=== PATIENT | male | born 1965 | race Caucasian/White ===

== ENCOUNTER 2017-09-13 19:28 | Inpatient (IN) | payer OTHER ==
[2017-09-13] VITALS (69 sets, daily range): O2SAT 78–100
[~2017-09-13] VITALS: Ht 180.3 cm; Wt 88.6 kg
[~2017-09-13 19:28] MED LIST: CELEXA10 MG PO; PREDNISONE20 MG PO; PRINIVIL2.5 MG PO; TOPROL XL 25MG25 MG PO
[2017-09-13 20:19] LABS: ARTERIAL BLD GAS O2 SATURATION 88.1 % (92-100); ARTERIAL BLD GAS TCO2 CT 20.7; ARTERIAL BLOOD GAS BASE EXCESS -4.6 (-2-2); ARTERIAL BLOOD GAS HCO3 19.7 meq/L (22-26); ARTERIAL BLOOD GAS PCO2 32.8 mmHg (35-45); ARTERIAL BLOOD GAS PO2 59.4 mmHg (80-100)
[2017-09-13 20:24] LABS: BASO % 0.2 % (0.0-2.0); GRAN # 3.5 (1.4-6.5); GRAN % 73.9 % (42.2-75.2); LYMPH # 0.7 (1.2-3.4); LYMPH % 15.2 % (20.0-51.0); MEAN CELL VOLUME 88 fl (80.0-100.0); MEAN CORPUSCULAR HGB CONC 30 g/dl (33.0-37.0); MEAN PLATELET VOLUME 10.2 fl (7.4-10.4); MONO # 0.5 (0.1-0.6); MONO % 10.3 % (1.7-9.3); PLATELET COUNT 136 K/mm3 (130-400); RED BLOOD COUNT 2.84 M/mm3 (4.20-5.60); REDCELL DISTRIBUTION WIDTH-CV 20.7 % (11.5-14.5)
[2017-09-13 20:27] LABS: HEMATOCRIT 25.1 % (42.0-52.0); HEMOGLOBIN 7.4 g/dl (13.5-18.0); MEAN CORPUSCULAR HEMOGLOBIN 26 pg (27.0-31.0)
[2017-09-13 20:28] LABS: INR 1.7 (0.8-3.0); PROTHROMBIN TIME 19.4 SECONDS (9.7-12.8)
[2017-09-13 20:31] LABS: PARTIAL THROMBOPLASTIN TIME 30.7 SECONDS (26.0-37.0)
[2017-09-13 20:35] LABS: ALANINE AMINOTRANSFERASE 38 U/L (21-72); ALBUMIN 2.9 gm/dL (3.5-5.0); ALCOHOL(ethanol),MEDICAL 24 mg/dL; ALKALINE PHOSPHATASE 244 U/L (50-136); ANION GAP 14 mmol/L (7-16); AST,SGOT 84 U/L (15-37); BILIRUBIN,TOTAL 2.1 mg/dL (0.0-1.0); BLOOD UREA NITROGEN 22 mg/dL (9-20); C-REACTIVE PROTEIN 4.9 mg/dL (0.0-0.9); CALCIUM 8.2 mg/dL (8.4-10.2); CARBON DIOXIDE 20 mmol/L (22-30); CHLORIDE 100 mmol/L (98-107); CREATINE KINASE 90 U/L (55-170); CREATININE, serum 0.74 mg/dL (0.66-1.25); GLUCOSE 173 mg/dL (74-106); LIPASE 368 U/L (23-300); MAGNESIUM 1.9 mg/dL (1.6-2.3); POTASSIUM 3.4 mmol/L (3.4-5.0); SODIUM 134 mmol/L (137-145); TOTAL PROTEIN 6.8 gm/dL (6.4-8.2)
[2017-09-13 20:45] LABS: TROPONIN-I < 0.012 ng/mL (0.000-0.034)
[2017-09-13 23:18] LABS: ARTERIAL BLD GAS O2 SATURATION 84.8 % (92-100); ARTERIAL BLD GAS TCO2 CT 19.7; ARTERIAL BLOOD GAS BASE EXCESS -10.6 (-2-2); ARTERIAL BLOOD GAS PCO2 55.8 mmHg (35-45); ARTERIAL BLOOD GAS PO2 70.9 mmHg (80-100)
[2017-09-13 23:21] LABS: ARTERIAL BLOOD GAS pH 7.13 (7.35-7.45)
[2017-09-13 23:34] LABS: HEMATOCRIT 23.2 % (42.0-52.0)
[2017-09-13 23:35] LABS: HEMOGLOBIN 6.6 g/dl (13.5-18.0)
[2017-09-13 23:53] LABS: PERITONEAL FLUID RBC 2000 /mm3 (0-0)
[2017-09-14] VITALS (849 sets, daily range): BP systolic 67–129; BP diastolic 46–94; PULSE 97–115; TEMP 97–99.4; O2SAT 59–100
[2017-09-14 00:06] LABS: PERITONEAL -POLYMORPHONUCLEAR 95 % (0-25)
[2017-09-14 00:51] LABS: ACETAMINOPHEN < 10 ug/mL (10-30); SALICYLATE < 1.0 mg/dL
[2017-09-14 01:08] LABS: ARTERIAL BLD GAS O2 SATURATION 95.4 % (92-100); ARTERIAL BLD GAS TCO2 CT 19.1; ARTERIAL BLOOD GAS BASE EXCESS -7.7 (-2-2); ARTERIAL BLOOD GAS PCO2 37.4 mmHg (35-45); ARTERIAL BLOOD GAS PO2 93.8 mmHg (80-100)
[2017-09-14 04:52] LABS: ARTERIAL BLD GAS O2 SATURATION 98.6 % (92-100); ARTERIAL BLD GAS TCO2 CT 19.2; ARTERIAL BLOOD GAS BASE EXCESS -6.5 (-2-2); ARTERIAL BLOOD GAS HCO3 18.2 meq/L (22-26); ARTERIAL BLOOD GAS PCO2 33.3 mmHg (35-45); ARTERIAL BLOOD GAS pH 7.36 (7.35-7.45)
[2017-09-14 04:53] LABS: ARTERIAL BLOOD GAS PO2 143.6 mmHg (80-100)
[2017-09-14 05:09] LABS: AMORPHOUS CRYSTAL Present /uL; PH 5 (5-8); URINE APPEARANCE Cloudy; URINE BACTERIA Rare /hpf; URINE BILIRUBIN Negative (NEGATIVE); URINE BLOOD 2+ (NEGATIVE); URINE COLOR Yellow; URINE GLUCOSE Negative (NEGATIVE); URINE KETONE Negative (NEGATIVE); URINE LEUKOCYTE ESTERASE Negative (NEGATIVE); URINE NITRATE Negative (NEGATIVE); URINE PROTEIN(semi-quant) 1+ (NEGATIVE); URINE UROBILINOGEN Negative (NEGATIVE)
[2017-09-14 05:10] LABS: TRICYCLIC ANTIDEPRESS URINE NEGATIVE
[2017-09-14 05:12] LABS: COLLECTION METHOD CLEAN CATCH
[2017-09-14 05:43] LABS: MEAN CELL VOLUME 89 fl (80.0-100.0); MEAN CORPUSCULAR HGB CONC 30 g/dl (33.0-37.0); MEAN PLATELET VOLUME 11.2 fl (7.4-10.4); PLATELET COUNT 95 K/mm3 (130-400); RED BLOOD COUNT 3.28 M/mm3 (4.20-5.60); REDCELL DISTRIBUTION WIDTH-CV 18.6 % (11.5-14.5)
[2017-09-14 05:54] LABS: INR 2.4 (0.8-3.0); PROTHROMBIN TIME 28.2 SECONDS (9.7-12.8)
[2017-09-14 06:00] LABS: HEMATOCRIT 29.3 % (42.0-52.0); HEMOGLOBIN 8.8 g/dl (13.5-18.0); MEAN CORPUSCULAR HEMOGLOBIN 27 pg (27.0-31.0)
[2017-09-14 06:02] LABS: ALBUMIN 2.3 gm/dL (3.5-5.0); BILIRUBIN,TOTAL 4.1 mg/dL (0.0-1.0); CALCIUM 7.2 mg/dL (8.4-10.2); CREATININE, serum 1.16 mg/dL (0.66-1.25); POTASSIUM 3.7 mmol/L (3.4-5.0); TOTAL PROTEIN 5.6 gm/dL (6.4-8.2)
[2017-09-14 07:56] LABS: BAND 35 % (0-10); LYMPHOCYTE 8 % (20.0-51.0); NEUTROPHILS 48 % (42.0-75.2); NUCLEATED RED BLOOD CELL 1 (0-6); PLATELET ESTIMATE DECREASED (NORMAL)
[2017-09-14 07:57] LABS: ANISOCYTOSIS 1+; HYPOCHROMIA 3+
[2017-09-14 12:30] LABS: HEMATOCRIT 28.9 % (42.0-52.0); HEMOGLOBIN 8.8 g/dl (13.5-18.0)
[2017-09-14 15:57] LABS: INR 2.1 (0.8-3.0); PROTHROMBIN TIME 24.7 SECONDS (9.7-12.8)
[2017-09-14 17:02] LABS: ARTERIAL BLD GAS O2 SATURATION 92.5 % (92-100); ARTERIAL BLD GAS TCO2 CT 19.4; ARTERIAL BLOOD GAS BASE EXCESS -6.5 (-2-2); ARTERIAL BLOOD GAS HCO3 18.3 meq/L (22-26); ARTERIAL BLOOD GAS PCO2 33.9 mmHg (35-45); ARTERIAL BLOOD GAS PO2 69.9 mmHg (80-100); ARTERIAL BLOOD GAS pH 7.35 (7.35-7.45)
[2017-09-14 20:17] LABS: HEMATOCRIT 28.7 % (42.0-52.0); HEMOGLOBIN 8.5 g/dl (13.5-18.0)
[2017-09-14 21:56] LABS: INR 2.2 (0.8-3.0); PROTHROMBIN TIME 25.4 SECONDS (9.7-12.8)
[2017-09-14 21:59] LABS: PARTIAL THROMBOPLASTIN TIME 32.3 SECONDS (26.0-37.0)
[2017-09-15] VITALS (1074 sets, daily range): BP systolic 93–143; BP diastolic 7–73; PULSE 81–99; TEMP 96.7–99.3; O2SAT 84–99
[2017-09-15 04:17] LABS: MEAN CELL VOLUME 91 fl (80.0-100.0); MEAN CORPUSCULAR HGB CONC 30 g/dl (33.0-37.0); MEAN PLATELET VOLUME 11.4 fl (7.4-10.4); PLATELET COUNT 146 K/mm3 (130-400); RED BLOOD COUNT 3.09 M/mm3 (4.20-5.60); REDCELL DISTRIBUTION WIDTH-CV 19.8 % (11.5-14.5)
[2017-09-15 04:23] LABS: ARTERIAL BLD GAS O2 SATURATION 73.5 % (92-100); ARTERIAL BLD GAS TCO2 CT 21.7; ARTERIAL BLOOD GAS BASE EXCESS -5.4 (-2-2); ARTERIAL BLOOD GAS HCO3 20.5 meq/L (22-26); ARTERIAL BLOOD GAS PCO2 41.2 mmHg (35-45); ARTERIAL BLOOD GAS pH 7.31 (7.35-7.45)
[2017-09-15 04:26] LABS: ALANINE AMINOTRANSFERASE 431 U/L (21-72); ALBUMIN 2.7 gm/dL (3.5-5.0); ALKALINE PHOSPHATASE 132 U/L (50-136); ANION GAP 11 mmol/L (7-16); AST,SGOT > 750 U/L (15-37); BILIRUBIN,TOTAL 6.2 mg/dL (0.0-1.0); BLOOD UREA NITROGEN 37 mg/dL (9-20); CALCIUM 7.7 mg/dL (8.4-10.2); CARBON DIOXIDE 20 mmol/L (22-30); CHLORIDE 102 mmol/L (98-107); CREATININE, serum 1.94 mg/dL (0.66-1.25); GLUCOSE 197 mg/dL (74-106); MAGNESIUM 2.1 mg/dL (1.6-2.3); PHOSPHOROUS 4.9 mg/dL (2.5-4.5); POTASSIUM 4.6 mmol/L (3.4-5.0); SODIUM 133 mmol/L (137-145); TOTAL PROTEIN 6.2 gm/dL (6.4-8.2)
[2017-09-15 04:27] LABS: ARTERIAL BLOOD GAS PO2 42.3 mmHg (80-100)
[2017-09-15 04:35] LABS: HEMOGLOBIN 8.5 g/dl (13.5-18.0); MEAN CORPUSCULAR HEMOGLOBIN 28 pg (27.0-31.0)
[2017-09-15 04:50] LABS: INR 2.4 (0.8-3.0); PROTHROMBIN TIME 28.3 SECONDS (9.7-12.8)
[2017-09-15 05:00] LABS: BAND 13 % (0-10); LYMPHOCYTE 18 % (20.0-51.0); METAMYELOCYTE 1 % (0-0); NEUTROPHILS 63 % (42.0-75.2); NUCLEATED RED BLOOD CELL 3 (0-6); POLYCHROMASIA 1+; ROULEAUX 2+
[2017-09-15 05:01] LABS: ANISOCYTOSIS 2+; HYPOCHROMIA 1+; POIKILOCYTOSIS 1+; SCHISTOCYTES 1+
[2017-09-15 20:25] LABS: HEMATOCRIT 22.7 % (42.0-52.0)
[2017-09-15 20:27] LABS: HEMOGLOBIN 6.9 g/dl (13.5-18.0)
[2017-09-16] VITALS (870 sets, daily range): BP systolic 92–153; BP diastolic 44–74; PULSE 70–120; TEMP 96.9–98.5; O2SAT 85–99
[2017-09-16 05:35] LABS: ARTERIAL BLD GAS TCO2 CT 22.5; ARTERIAL BLOOD GAS BASE EXCESS -1.8 (-2-2); ARTERIAL BLOOD GAS HCO3 21.6 meq/L (22-26); ARTERIAL BLOOD GAS PCO2 30.4 mmHg (35-45); ARTERIAL BLOOD GAS pH 7.47 (7.35-7.45)
[2017-09-16 05:56] LABS: MEAN CELL VOLUME 89 fl (80.0-100.0); MEAN CORPUSCULAR HGB CONC 31 g/dl (33.0-37.0); MEAN PLATELET VOLUME 10.8 fl (7.4-10.4); PLATELET COUNT 62 K/mm3 (130-400); RED BLOOD COUNT 2.56 M/mm3 (4.20-5.60); REDCELL DISTRIBUTION WIDTH-CV 20.3 % (11.5-14.5)
[2017-09-16 06:00] LABS: INR 2.2 (0.8-3.0); PROTHROMBIN TIME 25.3 SECONDS (9.7-12.8)
[2017-09-16 06:06] LABS: HEMATOCRIT 22.8 % (42.0-52.0); MEAN CORPUSCULAR HEMOGLOBIN 27 pg (27.0-31.0)
[2017-09-16 06:10] LABS: ALBUMIN 2.7 gm/dL (3.5-5.0); BILIRUBIN,TOTAL 4.7 mg/dL (0.0-1.0); CALCIUM 8.2 mg/dL (8.4-10.2); CREATININE, serum 1.6 mg/dL (0.66-1.25); POTASSIUM 3.8 mmol/L (3.4-5.0); TOTAL PROTEIN 5.6 gm/dL (6.4-8.2)
[2017-09-16 07:58] LABS: BAND 52 % (0-10); LYMPHOCYTE 10 % (20.0-51.0); NEUTROPHILS 36 % (42.0-75.2)
[2017-09-16 07:59] LABS: ANISOCYTOSIS 4+; OVALOCYTES 1+; PLATELET ESTIMATE DECREASED (NORMAL); TARGET CELLS 1+
[2017-09-16 09:34] LABS: MAGNESIUM 2.3 mg/dL (1.6-2.3); PHOSPHOROUS 2.9 mg/dL (2.5-4.5)
[2017-09-16 11:56] LABS: ARTERIAL BLD GAS O2 SATURATION 93.5 % (92-100); ARTERIAL BLD GAS TCO2 CT 25.4; ARTERIAL BLOOD GAS BASE EXCESS -2.1 (-2-2); ARTERIAL BLOOD GAS HCO3 23.9 meq/L (22-26); ARTERIAL BLOOD GAS PCO2 47.1 mmHg (35-45); ARTERIAL BLOOD GAS pH 7.32 (7.35-7.45)
[2017-09-16 12:55] LABS: TRIGLYCERIDE 67 mg/dL
[2017-09-16 13:00] LABS: CHOLESTEROL < 50 mg/dL (120-200)
[2017-09-17] VITALS (1004 sets, daily range): BP systolic 86–112; BP diastolic 48–61; PULSE 67–101; TEMP 96.9–98.5; O2SAT 91–99
[2017-09-17 05:47] LABS: BASO # 0.1 (0.0-0.2); BASO % 0.4 % (0.0-2.0); GRAN # 10.9 (1.4-6.5); GRAN % 79.9 % (42.2-75.2); LYMPH # 0.5 (1.2-3.4); LYMPH % 3.7 % (20.0-51.0); MEAN CELL VOLUME 91 fl (80.0-100.0); MEAN CORPUSCULAR HGB CONC 30 g/dl (33.0-37.0); MONO # 2.1 (0.1-0.6); MONO % 15.6 % (1.7-9.3); PLATELET COUNT 80 K/mm3 (130-400); RED BLOOD COUNT 2.96 M/mm3 (4.20-5.60); REDCELL DISTRIBUTION WIDTH-CV 19.5 % (11.5-14.5)
[2017-09-17 05:48] LABS: HEMATOCRIT 26.9 % (42.0-52.0); HEMOGLOBIN 8.1 g/dl (13.5-18.0); MEAN CORPUSCULAR HEMOGLOBIN 27 pg (27.0-31.0)
[2017-09-17 05:50] LABS: INR 1.6 (0.8-3.0); PROTHROMBIN TIME 18.3 SECONDS (9.7-12.8)
[2017-09-17 05:59] LABS: CALCIUM 8.4 mg/dL (8.4-10.2); CREATININE, serum 1.39 mg/dL (0.66-1.25); MAGNESIUM 2.5 mg/dL (1.6-2.3); PHOSPHOROUS 3.1 mg/dL (2.5-4.5); POTASSIUM 5.2 mmol/L (3.4-5.0)
[2017-09-17 10:41] LABS: ARTERIAL BLOOD GAS PCO2 47.3 mmHg (35-45); ARTERIAL BLOOD GAS PO2 80.6 mmHg (80-100); ARTERIAL BLOOD GAS pH 7.34 (7.35-7.45)
[2017-09-17 10:42] LABS: ARTERIAL BLD GAS O2 SATURATION 94.7 % (92-100); ARTERIAL BLD GAS TCO2 CT 26.5; ARTERIAL BLOOD GAS BASE EXCESS -0.8 (-2-2)
[2017-09-17 13:46] LABS: MAGNESIUM 2.6 mg/dL (1.6-2.3); PHOSPHOROUS 2.7 mg/dL (2.5-4.5); POTASSIUM 5.3 mmol/L (3.4-5.0)
[2017-09-17 17:22] LABS: MAGNESIUM 2.6 mg/dL (1.6-2.3); PHOSPHOROUS 2.5 mg/dL (2.5-4.5); POTASSIUM 4.9 mmol/L (3.4-5.0)
[2017-09-17 20:58] LABS: MAGNESIUM 2.6 mg/dL (1.6-2.3); PHOSPHOROUS 1.9 mg/dL (2.5-4.5); POTASSIUM 4.4 mmol/L (3.4-5.0)
[2017-09-18] VITALS (1167 sets, daily range): BP systolic 90–123; BP diastolic 41–66; PULSE 62–126; TEMP 96.8–98.2; O2SAT 91–100
[2017-09-18 06:05] LABS: CALCIUM 9.1 mg/dL (8.4-10.2); MAGNESIUM 2.6 mg/dL (1.6-2.3); PHOSPHOROUS 1.4 mg/dL (2.5-4.5); POTASSIUM 4.7 mmol/L (3.4-5.0)
[2017-09-18 06:40] LABS: MEAN CELL VOLUME 90 fl (80.0-100.0); MEAN CORPUSCULAR HGB CONC 31 g/dl (33.0-37.0); RED BLOOD COUNT 3.04 M/mm3 (4.20-5.60); REDCELL DISTRIBUTION WIDTH-CV 19.5 % (11.5-14.5)
[2017-09-18 06:48] LABS: HEMATOCRIT 27.3 % (42.0-52.0); HEMOGLOBIN 8.4 g/dl (13.5-18.0); MEAN CORPUSCULAR HEMOGLOBIN 28 pg (27.0-31.0)
[2017-09-18 06:49] LABS: PLATELET COUNT 47 K/mm3 (130-400)
[2017-09-18 07:14] LABS: NEUTROPHILS 61 % (42.0-75.2)
[2017-09-18 07:15] LABS: ANISOCYTOSIS 1+; BAND 24 % (0-10); HYPOCHROMIA 3+; LYMPHOCYTE 7 % (20.0-51.0); PLATELET ESTIMATE DECREASED (NORMAL)
[2017-09-18 18:16] LABS: MAGNESIUM 2.1 mg/dL (1.6-2.3); PHOSPHOROUS 2.2 mg/dL (2.5-4.5); POTASSIUM 3.7 mmol/L (3.4-5.0)
[2017-09-19] VITALS (1080 sets, daily range): BP systolic 90–123; BP diastolic 43–67; PULSE 58–136; TEMP 96.8–98.9; O2SAT 90–100
[2017-09-19 05:15] LABS: ARTERIAL BLD GAS O2 SATURATION 95.6 % (92-100); ARTERIAL BLD GAS TCO2 CT 31.4; ARTERIAL BLOOD GAS BASE EXCESS 6.3 (-2-2); ARTERIAL BLOOD GAS HCO3 30.2 meq/L (22-26); ARTERIAL BLOOD GAS PCO2 40.4 mmHg (35-45); ARTERIAL BLOOD GAS PO2 82.8 mmHg (80-100); ARTERIAL BLOOD GAS pH 7.49 (7.35-7.45)
[2017-09-19 06:04] LABS: BASO % 0.4 % (0.0-2.0); GRAN # 8.2 (1.4-6.5); GRAN % 80.9 % (42.2-75.2); LYMPH # 0.4 (1.2-3.4); LYMPH % 4.3 % (20.0-51.0); MEAN CELL VOLUME 88 fl (80.0-100.0); MEAN CORPUSCULAR HGB CONC 31 g/dl (33.0-37.0); MEAN PLATELET VOLUME 12.3 fl (7.4-10.4); MONO # 1.4 (0.1-0.6); MONO % 13.6 % (1.7-9.3); RED BLOOD COUNT 3.14 M/mm3 (4.20-5.60); REDCELL DISTRIBUTION WIDTH-CV 20.5 % (11.5-14.5)
[2017-09-19 06:09] LABS: HEMATOCRIT 27.5 % (42.0-52.0); HEMOGLOBIN 8.5 g/dl (13.5-18.0); MEAN CORPUSCULAR HEMOGLOBIN 27 pg (27.0-31.0)
[2017-09-19 06:10] LABS: PLATELET COUNT 49 K/mm3 (130-400)
[2017-09-19 06:18] LABS: ALBUMIN 2.2 gm/dL (3.5-5.0); BILIRUBIN,TOTAL 4.1 mg/dL (0.0-1.0); CALCIUM 8.9 mg/dL (8.4-10.2); CREATININE, serum 0.97 mg/dL (0.66-1.25); MAGNESIUM 2.2 mg/dL (1.6-2.3); PHOSPHOROUS 2.5 mg/dL (2.5-4.5); POTASSIUM 3.8 mmol/L (3.4-5.0)
[2017-09-19 15:55] LABS: ARTERIAL BLD GAS O2 SATURATION 95.7 % (92-100); ARTERIAL BLD GAS TCO2 CT 36.2; ARTERIAL BLOOD GAS BASE EXCESS 9.5 (-2-2); ARTERIAL BLOOD GAS HCO3 34.7 meq/L (22-26); ARTERIAL BLOOD GAS PCO2 50.2 mmHg (35-45); ARTERIAL BLOOD GAS PO2 86.7 mmHg (80-100); ARTERIAL BLOOD GAS pH 7.46 (7.35-7.45)
[2017-09-19 16:23] LABS: CALCIUM 8.8 mg/dL (8.4-10.2); CREATININE, serum 0.96 mg/dL (0.66-1.25); POTASSIUM 3.9 mmol/L (3.4-5.0)
[2017-09-19 22:22] LABS: CREATININE, serum 0.99 mg/dL (0.66-1.25); POTASSIUM 3.5 mmol/L (3.4-5.0)
[2017-09-20] VITALS (1069 sets, daily range): BP systolic 92–127; BP diastolic 54–82; PULSE 62–108; TEMP 97.3–99.8; O2SAT 78–100
[2017-09-20 04:43] LABS: ARTERIAL BLOOD GAS BASE EXCESS 1.7 (-2-2); ARTERIAL BLOOD GAS PCO2 33.7 mmHg (35-45); ARTERIAL BLOOD GAS PO2 87.1 mmHg (80-100); ARTERIAL BLOOD GAS pH 7.49 (7.35-7.45)
[2017-09-20 06:14] LABS: BASO % 0.1 % (0.0-2.0); GRAN # 7.5 (1.4-6.5); GRAN % 84.6 % (42.2-75.2); LYMPH # 0.2 (1.2-3.4); LYMPH % 2.7 % (20.0-51.0); MEAN CELL VOLUME 89 fl (80.0-100.0); MEAN CORPUSCULAR HGB CONC 30 g/dl (33.0-37.0); MEAN PLATELET VOLUME 11.6 fl (7.4-10.4); MONO % 11.7 % (1.7-9.3); RED BLOOD COUNT 3.14 M/mm3 (4.20-5.60); REDCELL DISTRIBUTION WIDTH-CV 21.2 % (11.5-14.5)
[2017-09-20 06:19] LABS: HEMATOCRIT 27.8 % (42.0-52.0); HEMOGLOBIN 8.4 g/dl (13.5-18.0); MEAN CORPUSCULAR HEMOGLOBIN 27 pg (27.0-31.0)
[2017-09-20 06:20] LABS: PLATELET COUNT 49 K/mm3 (130-400)
[2017-09-20 06:21] LABS: INR 1.6 (0.8-3.0); PROTHROMBIN TIME 18.2 SECONDS (9.7-12.8)
[2017-09-20 06:24] LABS: PARTIAL THROMBOPLASTIN TIME 32.3 SECONDS (26.0-37.0)
[2017-09-20 06:31] LABS: ALBUMIN 2.3 gm/dL (3.5-5.0); BILIRUBIN,TOTAL 4.4 mg/dL (0.0-1.0); CREATININE, serum 0.94 mg/dL (0.66-1.25); PHOSPHOROUS 3.4 mg/dL (2.5-4.5); TOTAL PROTEIN 5.1 gm/dL (6.4-8.2)
[2017-09-20 13:52] LABS: ARTERIAL BLD GAS O2 SATURATION 93.9 % (92-100); ARTERIAL BLD GAS TCO2 CT 30.4; ARTERIAL BLOOD GAS BASE EXCESS 5.8 (-2-2); ARTERIAL BLOOD GAS HCO3 29.3 meq/L (22-26); ARTERIAL BLOOD GAS PCO2 38.3 mmHg (35-45); ARTERIAL BLOOD GAS PO2 68.7 mmHg (80-100)
[2017-09-21] VITALS (1012 sets, daily range): BP systolic 105–141; BP diastolic 62–84; PULSE 73–124; TEMP 97–99.4; O2SAT 84–99
[2017-09-21 04:42] LABS: ARTERIAL BLD GAS O2 SATURATION 94.3 % (92-100); ARTERIAL BLOOD GAS BASE EXCESS 6.9 (-2-2); ARTERIAL BLOOD GAS HCO3 31.6 meq/L (22-26); ARTERIAL BLOOD GAS PCO2 46.3 mmHg (35-45); ARTERIAL BLOOD GAS PO2 74.5 mmHg (80-100); ARTERIAL BLOOD GAS pH 7.45 (7.35-7.45)
[2017-09-21 05:45] LABS: BASO % 0.1 % (0.0-2.0); GRAN % 89.8 % (42.2-75.2); LYMPH # 0.3 (1.2-3.4); LYMPH % 1.7 % (20.0-51.0); MEAN CELL VOLUME 88 fl (80.0-100.0); MEAN CORPUSCULAR HGB CONC 30 g/dl (33.0-37.0); MEAN PLATELET VOLUME 11.7 fl (7.4-10.4); MONO # 1.2 (0.1-0.6); MONO % 7.8 % (1.7-9.3); PLATELET COUNT 64 K/mm3 (130-400); RED BLOOD COUNT 3.25 M/mm3 (4.20-5.60); REDCELL DISTRIBUTION WIDTH-CV 21.7 % (11.5-14.5)
[2017-09-21 05:46] LABS: HEMATOCRIT 28.7 % (42.0-52.0); HEMOGLOBIN 8.7 g/dl (13.5-18.0); MEAN CORPUSCULAR HEMOGLOBIN 27 pg (27.0-31.0)
[2017-09-21 05:55] LABS: INR 1.6 (0.8-3.0); PROTHROMBIN TIME 18.2 SECONDS (9.7-12.8)
[2017-09-21 06:03] LABS: PARTIAL THROMBOPLASTIN TIME 30.7 SECONDS (26.0-37.0)
[2017-09-21 06:06] LABS: ALBUMIN 2.6 gm/dL (3.5-5.0); BILIRUBIN,TOTAL 5.9 mg/dL (0.0-1.0); CALCIUM 8.8 mg/dL (8.4-10.2); CREATININE, serum 0.96 mg/dL (0.66-1.25); POTASSIUM 4.2 mmol/L (3.4-5.0); TOTAL PROTEIN 5.7 gm/dL (6.4-8.2)
[2017-09-21 10:37] LABS: ARTERIAL BLD GAS O2 SATURATION 95.4 % (92-100); ARTERIAL BLD GAS TCO2 CT 29.2; ARTERIAL BLOOD GAS BASE EXCESS 3.6 (-2-2); ARTERIAL BLOOD GAS HCO3 27.9 meq/L (22-26); ARTERIAL BLOOD GAS PCO2 41.5 mmHg (35-45); ARTERIAL BLOOD GAS pH 7.45 (7.35-7.45)
[2017-09-21 19:18] LABS: ARTERIAL BLD GAS O2 SATURATION 91.9 % (92-100); ARTERIAL BLD GAS TCO2 CT 29.2; ARTERIAL BLOOD GAS BASE EXCESS 5.3 (-2-2); ARTERIAL BLOOD GAS HCO3 28.2 meq/L (22-26); ARTERIAL BLOOD GAS PCO2 34.8 mmHg (35-45); ARTERIAL BLOOD GAS PO2 59.3 mmHg (80-100); ARTERIAL BLOOD GAS pH 7.53 (7.35-7.45)
[2017-09-22] VITALS (915 sets, daily range): BP systolic 95–171; BP diastolic 57–99; PULSE 68–96; TEMP 97.6–99.2; O2SAT 90–96
[2017-09-22 05:33] LABS: ARTERIAL BLD GAS TCO2 CT 33.4; ARTERIAL BLOOD GAS BASE EXCESS 6.8 (-2-2); ARTERIAL BLOOD GAS HCO3 31.9 meq/L (22-26); ARTERIAL BLOOD GAS PO2 91.4 mmHg (80-100); ARTERIAL BLOOD GAS pH 7.43 (7.35-7.45)
[2017-09-22 06:01] LABS: MEAN CELL VOLUME 86 fl (80.0-100.0); MEAN CORPUSCULAR HGB CONC 31 g/dl (33.0-37.0); PLATELET COUNT 55 K/mm3 (130-400); RED BLOOD COUNT 3.12 M/mm3 (4.20-5.60); REDCELL DISTRIBUTION WIDTH-CV 22.1 % (11.5-14.5)
[2017-09-22 06:11] LABS: HEMATOCRIT 26.8 % (42.0-52.0); HEMOGLOBIN 8.3 g/dl (13.5-18.0); MEAN CORPUSCULAR HEMOGLOBIN 27 pg (27.0-31.0)
[2017-09-22 06:12] LABS: ALANINE AMINOTRANSFERASE 81 U/L (21-72); ALBUMIN 2.8 gm/dL (3.5-5.0); ALKALINE PHOSPHATASE 69 U/L (50-136); ANION GAP 7 mmol/L (7-16); AST,SGOT 91 U/L (15-37); BILIRUBIN,TOTAL 6.7 mg/dL (0.0-1.0); BLOOD UREA NITROGEN 58 mg/dL (9-20); CARBON DIOXIDE 33 mmol/L (22-30); CHLORIDE 107 mmol/L (98-107); CREATININE, serum 0.81 mg/dL (0.66-1.25); GLUCOSE 134 mg/dL (74-106); INR 1.6 (0.8-3.0); MAGNESIUM 2.1 mg/dL (1.6-2.3); PHOSPHOROUS 3.1 mg/dL (2.5-4.5); POTASSIUM 3.5 mmol/L (3.4-5.0); PROTHROMBIN TIME 18.6 SECONDS (9.7-12.8); SODIUM 147 mmol/L (137-145); TOTAL PROTEIN 5.1 gm/dL (6.4-8.2); TRIGLYCERIDE 70 mg/dL
[2017-09-22 06:15] LABS: PARTIAL THROMBOPLASTIN TIME 34.3 SECONDS (26.0-37.0)
[2017-09-22 06:19] LABS: PRE ALBUMIN 8.9 mg/dL (17.6-36.0)
[2017-09-22 06:28] LABS: CHOLESTEROL < 50 mg/dL (120-200)
[2017-09-22 06:37] LABS: BAND 2 % (0-10); HYPOCHROMIA 2+; LYMPHOCYTE 3 % (20.0-51.0); NEUTROPHILS 93 % (42.0-75.2); PLATELET ESTIMATE DECREASED (NORMAL)
[2017-09-22 11:10] LABS: ARTERIAL BLD GAS O2 SATURATION 93.4 % (92-100); ARTERIAL BLD GAS TCO2 CT 29.9; ARTERIAL BLOOD GAS BASE EXCESS 4.6 (-2-2); ARTERIAL BLOOD GAS HCO3 28.7 meq/L (22-26); ARTERIAL BLOOD GAS PCO2 40.3 mmHg (35-45); ARTERIAL BLOOD GAS PO2 68.6 mmHg (80-100); ARTERIAL BLOOD GAS pH 7.47 (7.35-7.45)
[2017-09-22 22:07] LABS: 12 HR URINE TOTAL VOLUME 1.5 L
[2017-09-23] VITALS (1156 sets, daily range): BP systolic 86–106; BP diastolic 47–56; PULSE 54–67; TEMP 97.6–98.8; O2SAT 88–100
[2017-09-23 05:11] LABS: ARTERIAL BLOOD GAS BASE EXCESS 7.5 (-2-2); ARTERIAL BLOOD GAS HCO3 34.9 meq/L (22-26); ARTERIAL BLOOD GAS PCO2 68.4 mmHg (35-45); ARTERIAL BLOOD GAS PO2 92.7 mmHg (80-100); ARTERIAL BLOOD GAS pH 7.33 (7.35-7.45)
[2017-09-23 06:15] LABS: MEAN CELL VOLUME 90 fl (80.0-100.0); MEAN CORPUSCULAR HGB CONC 30 g/dl (33.0-37.0); PLATELET COUNT 75 K/mm3 (130-400); RED BLOOD COUNT 2.93 M/mm3 (4.20-5.60); REDCELL DISTRIBUTION WIDTH-CV 22.5 % (11.5-14.5)
[2017-09-23 06:22] LABS: HEMATOCRIT 26.5 % (42.0-52.0); MEAN CORPUSCULAR HEMOGLOBIN 27 pg (27.0-31.0)
[2017-09-23 06:35] LABS: ALBUMIN 2.4 gm/dL (3.5-5.0); BILIRUBIN,TOTAL 6.9 mg/dL (0.0-1.0); CALCIUM 8.8 mg/dL (8.4-10.2); CREATININE, serum 0.92 mg/dL (0.66-1.25); MAGNESIUM 2.3 mg/dL (1.6-2.3); PHOSPHOROUS 3.8 mg/dL (2.5-4.5); POTASSIUM 4.2 mmol/L (3.4-5.0); TOTAL PROTEIN 5.1 gm/dL (6.4-8.2)
[2017-09-23 07:31] LABS: ANISOCYTOSIS 2+; BAND 13 % (0-10); HYPOCHROMIA 2+; LYMPHOCYTE 2 % (20.0-51.0); NEUTROPHILS 85 % (42.0-75.2); PLATELET ESTIMATE DECREASED (NORMAL)
[2017-09-23 13:52] LABS: ARTERIAL BLD GAS O2 SATURATION 95.6 % (92-100); ARTERIAL BLD GAS TCO2 CT 35.1; ARTERIAL BLOOD GAS BASE EXCESS 7.6 (-2-2); ARTERIAL BLOOD GAS HCO3 33.4 meq/L (22-26); ARTERIAL BLOOD GAS PCO2 54.5 mmHg (35-45); ARTERIAL BLOOD GAS PO2 90.8 mmHg (80-100); ARTERIAL BLOOD GAS pH 7.41 (7.35-7.45)
[2017-09-24] VITALS (1112 sets, daily range): BP systolic 86–130; BP diastolic 44–80; PULSE 54–97; TEMP 97.5–98.3; O2SAT 82–100
[2017-09-24 05:24] LABS: ARTERIAL BLD GAS O2 SATURATION 96.1 % (92-100); ARTERIAL BLD GAS TCO2 CT 34.7; ARTERIAL BLOOD GAS BASE EXCESS 7.7 (-2-2); ARTERIAL BLOOD GAS HCO3 33.1 meq/L (22-26); ARTERIAL BLOOD GAS PCO2 51.7 mmHg (35-45); ARTERIAL BLOOD GAS PO2 88.5 mmHg (80-100); ARTERIAL BLOOD GAS pH 7.42 (7.35-7.45)
[2017-09-24 05:41] LABS: BASO % 0.2 % (0.0-2.0); GRAN # 16.6 (1.4-6.5); LYMPH # 0.2 (1.2-3.4); LYMPH % 1.2 % (20.0-51.0); MEAN CELL VOLUME 91 fl (80.0-100.0); MEAN CORPUSCULAR HGB CONC 30 g/dl (33.0-37.0); MEAN PLATELET VOLUME 11.4 fl (7.4-10.4); MONO # 0.9 (0.1-0.6); MONO % 5.2 % (1.7-9.3); PLATELET COUNT 68 K/mm3 (130-400); RED BLOOD COUNT 2.78 M/mm3 (4.20-5.60); REDCELL DISTRIBUTION WIDTH-CV 22.6 % (11.5-14.5)
[2017-09-24 05:46] LABS: INR 1.5 (0.8-3.0)
[2017-09-24 05:50] LABS: HEMATOCRIT 25.2 % (42.0-52.0); HEMOGLOBIN 7.5 g/dl (13.5-18.0); MEAN CORPUSCULAR HEMOGLOBIN 27 pg (27.0-31.0)
[2017-09-24 05:57] LABS: ALBUMIN 2.2 gm/dL (3.5-5.0); BILIRUBIN,TOTAL 7.7 mg/dL (0.0-1.0); CALCIUM 8.6 mg/dL (8.4-10.2); CREATININE, serum 0.96 mg/dL (0.66-1.25); MAGNESIUM 2.2 mg/dL (1.6-2.3); PHOSPHOROUS 3.2 mg/dL (2.5-4.5)
[2017-09-25] VITALS (80 sets, daily range): BP systolic 96–143; BP diastolic 56–77; PULSE 55–78; TEMP 97.2–98.2; O2SAT 95–100
[2017-09-25 05:18] LABS: ARTERIAL BLD GAS O2 SATURATION 97.2 % (92-100); ARTERIAL BLD GAS TCO2 CT 38.1; ARTERIAL BLOOD GAS BASE EXCESS 11.4 (-2-2); ARTERIAL BLOOD GAS HCO3 36.5 meq/L (22-26); ARTERIAL BLOOD GAS PCO2 52.1 mmHg (35-45); ARTERIAL BLOOD GAS PO2 104.4 mmHg (80-100); ARTERIAL BLOOD GAS pH 7.46 (7.35-7.45)
[2017-09-25 05:36] LABS: MEAN CELL VOLUME 88 fl (80.0-100.0); MEAN CORPUSCULAR HGB CONC 31 g/dl (33.0-37.0); PLATELET COUNT 70 K/mm3 (130-400); RED BLOOD COUNT 2.85 M/mm3 (4.20-5.60)
[2017-09-25 05:37] LABS: HEMATOCRIT 25.1 % (42.0-52.0); HEMOGLOBIN 7.7 g/dl (13.5-18.0); MEAN CORPUSCULAR HEMOGLOBIN 27 pg (27.0-31.0)
[2017-09-25 05:45] LABS: ALBUMIN 2.7 gm/dL (3.5-5.0); BILIRUBIN,TOTAL 9.9 mg/dL (0.0-1.0); CALCIUM 8.8 mg/dL (8.4-10.2); CREATININE, serum 0.88 mg/dL (0.66-1.25); MAGNESIUM 2.3 mg/dL (1.6-2.3); POTASSIUM 3.6 mmol/L (3.4-5.0); TOTAL PROTEIN 5.4 gm/dL (6.4-8.2)
[2017-09-25 05:47] LABS: EOSINOPHIL 2 % (0-4); LYMPHOCYTE 4 % (20.0-51.0); NEUTROPHILS 93 % (42.0-75.2); TARGET CELLS 3+
[2017-09-25 05:48] LABS: ANISOCYTOSIS 1+; HELMET CELLS 1+; HYPOCHROMIA 2+; OVALOCYTES 1+; POIKILOCYTOSIS 1+; ROULEAUX 1+
[2017-09-26] VITALS (614 sets, daily range): BP systolic 91–124; BP diastolic 51–80; PULSE 58–109; TEMP 97.4–100.1; O2SAT 95–100
[2017-09-26 06:11] LABS: BASO % 0.1 % (0.0-2.0); GRAN # 12.2 (1.4-6.5); GRAN % 92.4 % (42.2-75.2); LYMPH # 0.3 (1.2-3.4); MEAN CELL VOLUME 89 fl (80.0-100.0); MEAN CORPUSCULAR HGB CONC 30 g/dl (33.0-37.0); MONO # 0.7 (0.1-0.6); PLATELET COUNT 66 K/mm3 (130-400); RED BLOOD COUNT 2.61 M/mm3 (4.20-5.60); REDCELL DISTRIBUTION WIDTH-CV 24.7 % (11.5-14.5)
[2017-09-26 06:21] LABS: HEMATOCRIT 23.2 % (42.0-52.0); HEMOGLOBIN 6.9 g/dl (13.5-18.0); MEAN CORPUSCULAR HEMOGLOBIN 26 pg (27.0-31.0)
[2017-09-26 06:29] LABS: CALCIUM 8.5 mg/dL (8.4-10.2); CREATININE, serum 0.86 mg/dL (0.66-1.25); MAGNESIUM 2.3 mg/dL (1.6-2.3); POTASSIUM 3.5 mmol/L (3.4-5.0)
[2017-09-26 07:21] LABS: HEMATOCRIT 24.1 % (42.0-52.0); HEMOGLOBIN 7.3 g/dl (13.5-18.0)
[2017-09-27] VITALS (624 sets, daily range): BP systolic 93–118; BP diastolic 51–73; PULSE 64–82; TEMP 96.8–98.6; O2SAT 94–100
[2017-09-28] VITALS (865 sets, daily range): BP systolic 95–133; BP diastolic 57–83; PULSE 63–85; TEMP 97.2–98.2; O2SAT 80–100
[2017-09-28 05:45] LABS: BASO % 0.1 % (0.0-2.0); GRAN # 12.9 (1.4-6.5); GRAN % 93.4 % (42.2-75.2); LYMPH # 0.1 (1.2-3.4); LYMPH % 0.9 % (20.0-51.0); MEAN CELL VOLUME 85 fl (80.0-100.0); MEAN CORPUSCULAR HGB CONC 31 g/dl (33.0-37.0); MONO # 0.7 (0.1-0.6); MONO % 5.1 % (1.7-9.3); PLATELET COUNT 61 K/mm3 (130-400); RED BLOOD COUNT 3.02 M/mm3 (4.20-5.60); REDCELL DISTRIBUTION WIDTH-CV 25.7 % (11.5-14.5)
[2017-09-28 05:52] LABS: HEMATOCRIT 25.7 % (42.0-52.0); MEAN CORPUSCULAR HEMOGLOBIN 26 pg (27.0-31.0)
[2017-09-28 05:56] LABS: CALCIUM 8.5 mg/dL (8.4-10.2); CREATININE, serum 0.89 mg/dL (0.66-1.25); MAGNESIUM 2.2 mg/dL (1.6-2.3); PHOSPHOROUS 3.5 mg/dL (2.5-4.5); POTASSIUM 3.5 mmol/L (3.4-5.0)
[2017-09-28 06:01] LABS: ARTERIAL BLD GAS O2 SATURATION 95.7 % (92-100); ARTERIAL BLD GAS TCO2 CT 34.7; ARTERIAL BLOOD GAS BASE EXCESS 9.4 (-2-2); ARTERIAL BLOOD GAS HCO3 33.4 meq/L (22-26); ARTERIAL BLOOD GAS PCO2 43.4 mmHg (35-45); ARTERIAL BLOOD GAS PO2 85.4 mmHg (80-100)
[2017-09-28 10:44] LABS: ALK PHOS ISOENZYME XXX; ALK PHOS ISOENZYME - TOTAL XXX
[2017-09-28 10:44] LABS: ALK PHOS ISOENZYME XXX; ALK PHOS ISOENZYME - TOTAL XXX
[2017-09-28 10:45] LABS: ALK PHOS ISOENZYME XXX; ALK PHOS ISOENZYME - TOTAL XXX
[2017-09-28 10:45] LABS: ALK PHOS ISOENZYME XXX; ALK PHOS ISOENZYME - TOTAL XXX
== END 2017-10-03 07:35 | disposition expired | DRG 870 ==
LOC: COL.ER 19:28 → ICU 22:05 → MEDICAL 09-28 17:54
PROVIDERS: Anesthesiology Critical Care Medicine; Emergency Medicine; Internal Medicine; Internal Medicine Pulmonary Disease; Nurse Practitioner Family; Radiology Diagnostic Radiology
PROC: 5A1955Z Respiratory Ventilation, Greater than 96 Consecutive Hours (ICD-10-PCS; 2017-09-14)
PROC: 0BH18EZ Insertion of Endotracheal Airway into Trachea, Via Natural or Artificial Opening Endoscopic (ICD-10-PCS; 2017-09-14)
PROC: 0W9G3ZX Drainage of Peritoneal Cavity, Percutaneous Approach, Diagnostic (ICD-10-PCS; principal; 2017-09-15)
PROC: 0W9G3ZZ Drainage of Peritoneal Cavity, Percutaneous Approach (ICD-10-PCS; 2017-09-17)
PROC: 0W9G3ZZ Drainage of Peritoneal Cavity, Percutaneous Approach (ICD-10-PCS; 2017-09-21)
PROC: 0W9G3ZZ Drainage of Peritoneal Cavity, Percutaneous Approach (ICD-10-PCS; 2017-09-24)
DX: A41.9 Sepsis, unspecified organism (principal); K65.2 Spontaneous bacterial peritonitis; R65.21 Severe sepsis with septic shock; J96.01 Acute respiratory failure with hypoxia; J96.02 Acute respiratory failure with hypercapnia; Z51.5 Encounter for palliative care; Z66 Do not resuscitate; F10.231 Alcohol dependence with withdrawal delirium; E87.4 Mixed disorder of acid-base balance; N17.9 Acute kidney failure, unspecified; D68.8 Other specified coagulation defects; J90 Pleural effusion, not elsewhere classified; I10 Essential (primary) hypertension; F17.210 Nicotine dependence, cigarettes, uncomplicated; K70.31 Alcoholic cirrhosis of liver with ascites; F10.229 Alcohol dependence with intoxication, unspecified; Y90.0 Blood alcohol level of less than 20 mg/100 ml; K70.40 Alcoholic hepatic failure without coma; D64.9 Anemia, unspecified; R73.9 Hyperglycemia, unspecified; B95.62 Methicillin resistant Staphylococcus aureus infection as the cause of diseases classified elsewhere
CPT/HCPCS: 99223-AI; 99231-AI; 99232-AI; 99233-AI; 99238; A4216; A4217; C1751; J0610; J1450; J1815; J1940; J1956; J2060; J2250; J2270; J2405; J2543; J2704; J2920; J3010; J3370; J3411; J3430; J3475; J3480; J3486; J7030; J7050; J7060; J7131; P9016; P9047